=== PATIENT | male | born 1960 | race Caucasian/White ===

== ENCOUNTER → 2024-06-19 18:35 | Outpatient (CLI) | payer OTHER, SELFPAY ==
--- NOTE | 2024-06-19 18:39 | DI.MRI.S_ITS ---
PROCEDURE: MR LUMBAR SPINE WO CON INDICATIONS: WEAKNESS,LOW BACK PAIN,PARESTHESIA OF SKIN TECHNIQUE: Noncontrast sagittal T1 spin echo and T2 fast echo, sagittal STIR, and T2 fast spin echo through the lumbar spine. In cases with scoliosis, additional coronal T2 fast spin echo may be performed. COMPARISON: [facility] Outside Film, MR, MR LUMBAR SPINE WITHOUT CONTRAST, 03/12/2023, 15:30. FINDINGS: Image quality: Excellent. Alignment and Curvature: Mild levocurvature. Straightening of the normal lumbar lordosis. Transitional anatomy with sacralization of the L5 vertebral body. Bone Marrow: Mild multilevel Modic type 1 degenerative endplate changes. Marrow is of normal overall signal. No acute vertebral body compression fractures. Spinal Cord: Conus medullaris terminates at the L1 level. Visualized cord demonstrates normal signal and size. Paraspinous Soft Tissues: No paravertebral masses. T12-L1: Disc desiccation is severe height loss. Posterior disc bulge. Facet arthropathy. No central canal stenosis. Stable mild bilateral neural foraminal stenosis. L1-L2: Disc desiccation and mild disc height loss. Posterior disc bulge. Facet arthropathy. Stable mild central canal stenosis and mild bilateral neural foraminal stenosis. L2-L3: Disc desiccation and mild height loss. Posterior disc bulge, asymmetric to the right. Facet arthropathy and thickening of ligamentum flavum. Moderate central canal stenosis. Narrowing of the right lateral recess with possible abutment versus compression of the descending right L3 nerve root. Moderate bilateral neural foraminal stenosis is stable, right greater than left. L3-L4: Disc desiccation and moderate disc height loss. Posterior disc bulge is increased compared to prior. Facet arthropathy and thickening of ligamentum flavum. Moderate central canal stenosis. Narrowing of the lateral recesses with abutment versus compression of the descending L4 nerve roots, more pronounced on the left. Moderate bilateral neural foraminal stenosis. L4-L5: Disc desiccation and mild height loss. Diffuse disc bulge. Facet arthropathy and thickening of ligamentum flavum. Moderate to severe central canal stenosis is increased compared to prior. Moderate to severe right and moderate left neural foraminal stenosis is stable. L5-S1: Mild disc bulge. Facet arthropathy. No significant central canal stenosis. No neural foraminal stenosis. IMPRESSION: 1. Multilevel degenerative changes of the lumbar spine as described above. 2. Progression of central canal stenosis at L4-5, now moderate to severe. Central canal stenosis is stable at other levels. 3. Stable multilevel neural foraminal stenosis. Moderate to severe right neural foraminal stenosis at L4-5. Moderate bilateral neural foraminal stenosis at L2-L3 and L3-L4 and moderate left neural foraminal stenosis at L4-5. Dictated by: Ceasar Bagley M.D. on 06/20/2024 at 9:27 Approved by: Ceasar Bagley M.D. on 06/20/2024 at 9:36
== END ==
PROVIDERS: Referring Provider Nurse Practitioner Family; Visit Provider Nurse Practitioner Family
DX: M48.061 Spinal stenosis, lumbar region without neurogenic claudication (principal); M47.816 Spondylosis without myelopathy or radiculopathy, lumbar region; M47.817 Spondylosis without myelopathy or radiculopathy, lumbosacral region; M51.36 Other intervertebral disc degeneration, lumbar region; M51.37 Other intervertebral disc degeneration, lumbosacral region; R20.2 Paresthesia of skin; R53.1 Weakness; M54.50 Low back pain, unspecified
CPT/HCPCS: 72148